=== PATIENT | female | born 1990 | race Caucasian/White ===

== ENCOUNTER 2016-10-24 13:49 | Emergency (ER) | payer MEDICAID ==
[2016-10-24] MEDS ORDERED: CEPHALEXIN MONOHYDRATE 250 MG CAPSULE PO ONE (14:33)
[2016-10-24] MEDS ORDERED: DOXYCYCLINE 100 MG CAPSULE PO ONE (14:33)
--- NOTE | 2016-10-24 14:43 | ER PHYSICIAN DOCUMENTATION ---
Physician Documentation [facility] Name:Juju Durham Age:26 yrs Sex:Female :1990 Arrival Date:10/24/2016 Time:13:49 Bed1 Private MD: Erasmo Wong Disposition: 10/24/16 14:21 Discharged to Home/Self Care. Impression: Abscess. - Condition is Good. - Discharge Instructions: ABSCESS, Abx Only. - Prescriptions for Keflex 500 mg Oral Capsule - take 1 capsule by ORAL route every 12 hours for 10 days; 20 capsule. Doxycycline Hyclate 100 mg Oral Tablet - take 1 tablet by ORAL route every 12 hours; 20 tablet. - Medical Reconciliation form form. - Follow up: Private Physician; When: As needed; Reason: Continuance of care. - Problem is new. - Symptoms have improved. HPI: 10/24 15:05 This 26 yrs old Female presents to ER via Walk In with complaints of Cyst. 15:05 The patient presents with an abscess of the medial aspect of right thigh. Description: jm The affected area is very small, approximately 1.5 cm(s), swollen. Onset: The symptom(s)/episode began/occurred yesterday, and became worse today. Possible cause(s): ingrown hair. . Associated signs and symptoms: Pertinent positives: swelling, Pertinent negatives: fever. Historical: - Allergies: No known drug Allergies; - Home Meds: 1. None - PMHx: None; - PSHx: None; - Tetanus: < 10 years. - Ebola Screening: : No symptoms or risks identified at this time. . - Immunization history: Unable to Obtain. - Social history: Smoking status: unknown if patient ever smoked tobacco. ROS: 15:07 Constitutional: Negative for fever. jm 15:07 MS/extremity: Positive for swelling, tenderness, warmth. 15:07 Skin: Positive for abscess, Negative for cellulitis. Exam: 15:07 Constitutional: The patient appears alert, awake, comfortable. jm 15:07 Cardiovascular: Rate: normal, Rhythm: regular. 15:07 Skin: abscess, that is small, approximately 1.5 cm(s), of the medial aspect of right thigh, cellulitis, is not appreciated. 15:07 Psych: Behavior/mood is pleasant, cooperative, Affect is calm. Vital Signs: 14:42 BP 116 / 74; Pulse 73; Resp 12; Temp 98.3(O); Pulse Ox 97% on R/A; Weight 54.43 kg; nf Height 5 ft. 4 in. (162.56 cm); Pain 5/10; 14:42 Body Mass Index 20.60 (54.43 kg, 162.56 cm) nf MDM: 13:55 Patient medically screened. 15:08 Differential diagnosis: abscess. Data reviewed: vital signs, nurses notes, and as a jm result, I will discharge patient. Counseling: I had a detailed discussion with the patient and/or guardian regarding: the historical points, exam findings, and any diagnostic results supporting the discharge/admit diagnosis, the need for outpatient follow up, with the patient's primary care provider. ED course: very small abscess that is indurated. Will do 10 days of doxy/kefkex and dc home. . 0402 14:43 Order name: Dressing - Wound; Complete Time: 14:43 nf Dispensed Medications: 14:40 Drug: Doxycycline 100 mg; Route: PO; nf 14:41 Follow up: Response: Medication administered at discharge. nf 14:41 Drug: Keflex 500 mg; Route: PO; nf 14:41 Follow up: Response: Medication administered at discharge. nf Signatures: Cynthia Alvarenga RN RN nf Erasmo Cisneros MD MD jm
--- NOTE | 2016-10-24 14:43 | ER NURSING DOCUMENTATION ---
Nurse's Notes [facility] Name:Juju Durham Age:26 yrs Sex:Female :1990 Arrival Date:10/24/2016 Time:13:49 Bed1 Private MD: Diagnosis:Abscess Presentation: 10/24 13:59 Transition of care: Home. Notified ED Physician of patient's arrival and CC Blayne Delaney nf notified. 13:59 Acuity: DARRYL 4 nf 13:59 Method Of Arrival: Walk In nf 13:59 Presenting complaint: Patient states: wound to right upper inner thigh, patient states nf she thought she had an ingrown hair x1 month, yesterday tried to drain the area, today significantly increased swelling and pressure. Triage Assessment: 13:59 General: Appears in no apparent distress, well nourished, well groomed, Behavior is nf pleasant. Pain: Complains of pain in right thigh wound Pain does not radiate. Is minor x1 month and worse since yesterday. Derm: Abscess located on medial aspect of right thigh and right leg is golf ball sized, has no drainage, is red, was lanced by patient prior to arrival. Historical: - Allergies: No known drug Allergies; - Home Meds: 1. None - PMHx: None; - PSHx: None; - Tetanus: < 10 years. - Ebola Screening: : No symptoms or risks identified at this time. . - Immunization history: Unable to Obtain. - Social history: Smoking status: unknown if patient ever smoked tobacco. Screenin:59 Infectious Disease Risk None. Abuse screen: Denies threats or abuse. Nutritional nf screening: No deficits noted. Assessment: 13:59 See Triage Assessment done by same RN. nf Vital Signs: 14:42 BP 116 / 74; Pulse 73; Resp 12; Temp 98.3(O); Pulse Ox 97% on R/A; Weight 54.43 kg; nf Height 5 ft. 4 in. (162.56 cm); Pain 5/10; 14:42 Body Mass Index 20.60 (54.43 kg, 162.56 cm) nf ED Course: 13:50 Patient arrived in ED. arc 13:59 Cynthia Alvarenga, RN is Primary Nurse. nf 13:59 Triage completed. nf 13:59 Arm band placed on Bed in low position Call Light in Reach Gowned HOB Elevated Side nf rails up x1 Patient notified of wait time. 13:59 Valuables Remains with patient. Door closed. Noise minimized. Lights dimmed. Moved to private room. Verbal reassurance given. Warm blanket given. Pillow given. 14:09 Erasmo Cisneros MD is Attending Physician. susan 14:42 Dressings: Kerlix X 1; telfa; additional dressing supplies sent home with patient. nf Administered Medications: 14:40 Drug: Doxycycline 100 mg; Route: PO; nf 14:41 Follow up: Response: Medication administered at discharge. nf 14:41 Drug: Keflex 500 mg; Route: PO; nf 14:41 Follow up: Response: Medication administered at discharge. Outcome: 14:21 Discharge ordered by . 14:42 Discharged to home ambulatory. 14:42 Condition: good 14:42 Discharge Assessment: Patient awake, alert and oriented x 3. No cognitive and/or functional deficits noted. Patient verbalized understanding of disposition instructions. 14:42 Discharge instructions given to patient, Instructed on discharge instructions, follow up and referral plans. wound care, Demonstrated understanding of instructions, wound care Prescriptions given X 2, doxycycline and keflex 14:43 Patient left the ED. 0403 15:24 Discharge F/U Call: Spoke with: patient. Overall Care on a scale of 1-10 with 10 ma being the best care, you rate our care as: Other comments: States care was just fine and she is starting to feel better Signatures: Abigail Santillan, Cynthia Kerr RN, ma, RN RN nf Meyer, John, MD MD jm Chew, Amelia, Reg Reg arc
== END 2016-10-24 14:43 | disposition home or self-care (01) ==
LOC: ER 13:49
DX: L02.415 Cutaneous abscess of right lower limb (principal)
CPT/HCPCS: 99283